=== PATIENT | female | born 1990 | race Caucasian/White ===

== ENCOUNTER 2017-09-30 10:17 | Emergency (ER) | payer OTHER ==
[~2017-09-30] VITALS: Ht 160 cm; Wt 78.5 kg
[2017-09-30] MEDS ORDERED: NS IV 1000 ML 1,000 ML IV ONE (12:36)
--- NOTE | 2017-09-30 12:41 | ED Syncope ---
General Chief Complaint: Dizziness/Syncope Stated Complaint: PASSED OUT TWICE/14 WEEKS Nursing Triage Note: TO ROOM WITH MALE REPORTS SHE IS APX 14 WEEKS PREG. GOT OUT OF BED THIS AM BECAME DIZZY AND PASSED OUT IN SHOWER X2 Source of Information: Patient, Spouse Exam Limitations: No Limitations History of Present Illness Date Seen by Provider: September 30, 2017 Time Seen by Provider: 12:41 Initial Comments 18-year-old female patient presents to the emergency department with complaints of syncopal episodes 2 in the shower earlier today. Patient states she felt really hot and lightheaded. She then began having, vision followed by blacking out. Patient does report having an upper respiratory infection early last week , which improved by Sunday. Does report feeling lightheaded and Sunday when bending over. Patient is approximately 14 weeks . Denies hitting her head, neck pain, back pain, chest pain, shortness of air, or swelling. Patient states she wanted to make sure everything was okay with the baby, so she came to the emergency department. Patient does have a history of syncopal episodes with vasovagal response. Patient is asymptomatic at this time. She is scheduled for follow-up with Dr. Morales on October 10. Location Injury Occurred: Home Timing/Prior Episodes: Remote History Symptoms Prior to Episode: Blurred Vision (tunnel vision right before syncope) , Lightheadedness, Nausea, Other (felt really hot) Precipitating Factors: Other (was in the shower. [place] a little lightheaded while walking to the bathroom.) Allergies and Home Medications Allergies Coded Allergies: Sulfa (Sulfonamide Antibiotics) (Verified Allergy, Unknown, 09/30/17) latex (Verified Allergy, Unknown, 09/30/17) Home Medications Nitrofurantoin Monohyd/M-Cryst 100 Mg Capsule, 1 TAB PO BID Prescribed by: STEPHANIE RUIZ on 09/30/17 7129 Patient Home Medication List Home Medication List Reviewed: Yes Constitutional: see HPI; No chills, No fever, No malaise EENTM: no symptoms reported Respiratory: No cough, No dyspnea on exertion, No phlegm, No short of breath Cardiovascular: see HPI; No chest pain, No edema, No palpitations; syncope Gastrointestinal: No abdominal pain, No constipation, No diarrhea, No loss of appetite, No melena, No nausea (felt nauseated for a few minutes after waking up , but denies current nausea.), No vomiting Genitourinary: No decreased output, No discharge, No dysuria, No frequency, No hematuria, No pain, No other (denies vaginal bleeding) : Yes Musculoskeletal: No back pain, No joint pain, No neck pain Skin: No change in color, No lumps Psychiatric/Neurological: Denies Headache, Denies Numbness, Denies Paresthesia , Denies Seizure, Denies Tingling, Denies Weakness All Other Systems Reviewed Negative Unless Noted: Yes (Negative excepted noted.) Past Bjwwswh-[place]-Arxiue Hx Patient Social History Alcohol Use: Denies Use Recreational Drug Use: No Smoking Status: Never a Smoker Recent Foreign Travel: No Contact w/Someone Who Travel: No Recent Infectious Disease Expo: No Past Medical History Surgeries: Yes (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 H/o vasovagal response) Heart Murmur Neurological: No : Yes Hx : 1 Hx Para: 0 Hx Total # of Abortions (Sp): 0 Reproductive Disorders: No Female Reproductive Disorders: Denies Sexually Transmitted Disease: No HIV/AIDS: No Genitourinary: No Gastrointestinal: No Musculoskeletal: No Cancer: No Psychosocial: No Family Medical History Reviewed and Corrections made No Pertinent Family Hx Physical Exam Vital Signs Vital Signs - First Documented 09/30/17 09/30/17 10:36 15:17 Temp 97.0 Pulse 72 Resp 18 B/P (MAP) 111/71 (84) Pulse Ox 98 O2 Delivery Room Air Capillary Refill : Less Than 3 Seconds General Appearance: No Apparent Distress, WD/WN HEENT: PERRL/EOMI, TMs Normal, Normal ENT Inspection, Pharynx Normal; No Other (No evidence of raccoon eyes, bilateral sign, swelling, ecchymosis, or crepitus. ) Neck: Full Range of Motion, Normal Inspection, Non Tender, Supple; No Other ( No evidence of deformity, swelling, ecchymosis, or step-off of the C-spine.) Cardiovascular: Regular Rate, Rhythm, No Edema, No Gallop, No JVD, No Murmur, Normal Peripheral Pulses Respiratory: Lungs Clear, Normal Breath Sounds, No Accessory Muscle Use, No Respiratory Distress; No Other (No evidence of trauma to the chest wall.) Gastrointestinal: Normal Bowel Sounds, Non Tender, Soft; No Distended; Other ( Uterine fundus palpable and consistent with a 14 week gestation. No evidence of trauma to the abdominal wall.) Back: Normal Inspection, No CVA Tenderness, No Vertebral Tenderness Extremities: Normal Capillary Refill, Normal Inspection, Non Tender, No Calf Tenderness, No Pedal Edema, Pelvis Stable Neurologic/Psychiatric: Alert, Oriented x3, No Motor/Sensory Deficits, Normal Mood/Affect, station baggage agent II-XII Norm as Tested Cranial Nerves: Normal Hearing, Normal Speech, PERRL Coordination/Gait: Normal Finger to Nose, Normal Gait, Negative Romberg's Sign Motor/Sensory: No Motor Deficit, No Sensory Deficit, No Pronator Drift Skin: Normal Color, Warm/Dry; No Ecchymosis Progress/Results/Core Measures Results/Orders Lab Results Laboratory Tests Test 09/30/17 12:53 09/30/17 13:13 Range/Units Urine Color YELLOW Urine Clarity CLEAR Urine pH 7 5-9 Urine Specific Duck 1.010 L 1.016-1.022 Urine Protein 1+ H NEGATIVE Urine Glucose (UA) NEGATIVE NEGATIVE Urine Ketones 3+ H NEGATIVE Urine Nitrite POSITIVE H NEGATIVE Urine Bilirubin NEGATIVE NEGATIVE Urine Urobilinogen NORMAL NORMAL MG/DL Urine Leukocyte Esterase NEGATIVE NEGATIVE Urine RBC (Auto) NEGATIVE NEGATIVE Urine RBC RARE /HPF Urine WBC RARE /HPF Urine Squamous Epithelial Cells 0-2 /HPF Urine Crystals NONE /LPF Urine Bacteria FEW H /HPF Urine Casts NONE /LPF Urine Mucus NEGATIVE /LPF Urine Culture Indicated YES White Blood Count 10.7 4.3-11.0 10^3/uL Red Blood Count 4.77 4.35-5.85 10^6/uL Hemoglobin 14.1 11.5-16.0 G/DL Hematocrit 40 35-52 % Mean Corpuscular Volume 85 80-99 FL Mean Corpuscular Hemoglobin 30 25-34 PG Mean Corpuscular Hemoglobin Concent 35 32-36 G/DL Red Cell Distribution Width 13.3 10.0-14.5 % Platelet Count 294 130-400 10^3/uL Mean Platelet Volume 9.3 7.4-10.4 FL Neutrophils (%) (Auto) 86 H 42-75 % Lymphocytes (%) (Auto) 10 L 12-44 % Monocytes (%) (Auto) 4 0-12 % Eosinophils (%) (Auto) 0 0-10 % Basophils (%) (Auto) 0 0-10 % Neutrophils # (Auto) 9.2 H 1.8-7.8 X 10^3 Lymphocytes # (Auto) 1.0 1.0-4.0 X 10^3 Monocytes # (Auto) 0.5 0.0-1.0 X 10^3 Eosinophils # (Auto) 0.0 0.0-0.3 10^3/uL Basophils # (Auto) 0.0 0.0-0.1 10^3/uL Sodium Level 137 135-145 MMOL/L Potassium Level 4.0 3.6-5.0 MMOL/L Chloride Level 106 98-107 MMOL/L Carbon Dioxide Level 19 L 21-32 MMOL/L Anion Gap 12 5-14 MMOL/L Blood Urea Nitrogen 7 7-18 MG/DL Creatinine 0.66 0.60-1.30 MG/DL Estimat Glomerular Filtration Rate > 60 BUN/Creatinine Ratio 11 Glucose Level 76 70-105 MG/DL Calcium Level 9.8 8.5-10.1 MG/DL Total Bilirubin 0.8 0.1-1.0 MG/DL Aspartate Amino Transf (AST/SGOT) 17 5-34 U/L Alanine Aminotransferase (ALT/SGPT) 19 0-55 U/L Alkaline Phosphatase 56 40-136 U/L Troponin I < 0.30 <0.30 NG/ML Total Protein 7.4 6.4-8.2 GM/DL Albumin 4.8 H 3.2-4.5 GM/DL TSH Mcduffie Testing 0.82 0.35-4.94 UIU/ML Micro Results Microbiology 09/30/17 Urine Culture - Final, Complete My Orders Orders - STEPHANIE RUIZ Cbc With Automated Diff (09/30/17 12:36) Comprehensive Metabolic Panel (09/30/17 12:36) Thyroid Analyzer (09/30/17 12:36) Troponin I (09/30/17 12:36) Ua Culture If Indicated (09/30/17 12:36) Saline Lock/Iv-Start (09/30/17 12:36) Ekg Tracing (09/30/17 12:36) Heart Tones (09/30/17 12:36) Monitor-Rhythm Ecg Trace Only (09/30/17 12:36) Ns Iv 1000 Ml (Sodium Chloride 0.9%) (09/30/17 12:36) Urine Culture (09/30/17 12:53) Medications Given in ED Vital Signs/I&O 09/30/17 09/30/17 10:36 15:17 Temp 97.0 Pulse 72 60 Resp 18 18 B/P (MAP) 111/71 (84) 112/59 Pulse Ox 98 98 O2 Delivery Room Air Blood Pressure Mean: 38 Departure Communication (Admissions) Patient seen and evaluated. ECG and labs obtained. Patient and both refusing chest x-ray. I discussed risks, benefits, possible complications associated with not to performing the chest x-ray. All questions were answered. Both continue to refuse chest x-ray. Patient case discussed with Dr. Morales. Dr. Morales recommends following up in her office on Sunday for recheck. 1405 T's 156. all laboratory findings and diagnostic study findings discussed with the patient. Patient reports feeling much better after IV fluids. We will plan for discharge to home with follow-up as an outpatient with Dr. John Morales for recheck Sunday. Patient case discussed with Dr. Barger , he agrees with the plan of care. Impression Primary Impression: Urinary tract infection Qualified Codes: N30.00 - Acute cystitis without hematuria Additional Impressions: with 14 completed weeks gestation Volume depletion Disposition: 01 HOME, SELF-CARE Condition: Improved Departure-Patient Inst. Decision time for Depature: 14:12 Referrals: MELO KELLY MD (PCP) Primary Care Physician JOHN MORALES DO (Family) Primary Care Physician Patient Instructions: Dehydration, Adult (DC), Urinary Tract Infection, Adult ( DC), Vasovagal Response (DC) Add. Discharge Instructions: All discharge instructions reviewed with patient and/or family. Voiced understanding. Medications as directed. Continue usual home medications. Drink plenty of fluids. Alternate water and Gatorade/Powerade/vitamin water. No intercourse or strenuous activities until released by Dr. Morales. Follow-up with Dr. Morales for recheck on Sunday. Call Sunday morning for an appointment time. Return to the emergency department for worsened symptoms, changes in behavior, weakness, dizziness, vomiting, vomiting blood, rectal bleeding, black stools, abdominal pain, vaginal bleeding with greater than 2 pads per for greater than 2 hours, one-sided weakness, slurred speech, or any other concerns. Scripts Nitrofurantoin Monohyd/M-Cryst (Macrobid 100 mg Capsule) 100 Mg Capsule 1 TAB PO BID, #14 CAP 0 Refills Prov: STEPHANIE RUIZ 09/30/17 Work/School Note: Work Release Form Date Seen in the Emergency Department: September 30, 2017 Return to Work: October 03, 2017 Restrictions: No strenuous activity until released by STEPHANIE Scott September 30, 2017 12:41
[2017-09-30 13:18] LABS: BASOPHILS % (AUTO) 0 % (0-10); EOSINOPHILS % (AUTO) 0 % (0-10); HEMATOCRIT 40 % (35-52); HEMOGLOBIN 14.1 G/DL (11.5-16.0); LYMPHOCYTES % (AUTO) 10 % (12-44); MEAN CORPUSCULAR HEMOGLOBIN 30 PG (25-34); MEAN CORPUSCULAR HGB CONC 35 G/DL (32-36); MEAN CORPUSCULAR VOLUME 85 FL (80-99); MEAN PLATELET VOLUME 9.3 FL (7.4-10.4); MONOCYTES # (AUTO) 0.5 X 10^3 (0.0-1.0); MONOCYTES % (AUTO) 4 % (0-12); NEUTROPHILS # (AUTO) 9.2 X 10^3 (1.8-7.8); NEUTROPHILS % (AUTO) 86 % (42-75); PLATELET COUNT 294 10^3/uL (130-400); RED BLOOD COUNT 4.77 10^6/uL (4.35-5.85); RED CELL DISTRIBUTION WIDTH 13.3 % (10.0-14.5); WHITE BLOOD COUNT 10.7 10^3/uL (4.3-11.0)
[2017-09-30 13:23] LABS: BILIRUBIN,URINE NEGATIVE (NEGATIVE); CLARITY,URINE CLEAR; COLOR,URINE YELLOW; GLUCOSE, URINE (UA) NEGATIVE (NEGATIVE); KETONES,URINE 3+ (NEGATIVE); LEUKOCYTE ESTERASE ,URINE NEGATIVE (NEGATIVE); NITRITE,URINE POSITIVE (NEGATIVE); PH,URINE 7 (5-9); PROTEIN,URINE 1+ (NEGATIVE); UROBILINOGEN,URINE NORMAL (NORMAL)
[2017-09-30 13:39] LABS: ALANINE AMINOTRANSFERASE 19 U/L (0-55); ALBUMIN 4.8 GM/DL (3.2-4.5); ALKALINE PHOSPHATASE 56 U/L (40-136); BILIRUBIN,TOTAL 0.8 MG/DL (0.1-1.0); BUN/CREATININE RATIO 11; CALCIUM 9.8 MG/DL (8.5-10.1); CARBON DIOXIDE 19 MMOL/L (21-32); CHLORIDE 106 MMOL/L (98-107); CREATININE SERUM 0.66 MG/DL (0.60-1.30); GFR ESTIMATED > 60; GLUCOSE 76 MG/DL (70-105); SODIUM 137 MMOL/L (135-145); TOTAL PROTEIN 7.4 GM/DL (6.4-8.2)
[2017-09-30 13:59] LABS: TSH (THYROID ANALYZER) 0.82 UIU/ML (0.35-4.94)
[2017-09-30 14:02] LABS: BACTERIA,URINE FEW /HPF; RBC,URINE RARE /HPF; SQUAMOUS EPITHELIAL CELL,UR 0-2 /HPF; WBC,URINE RARE /HPF
[2017-09-30] MEDS ORDERED: NITR-65 PO ×2 (14:17→14:54)
[2017-09-30 15:17] VITALS: BP 112/59
--- OUTSIDE RECORDS SUMMARY | 2017-10-01 16:13 | XMS REPORT | Continuity of Care Document ---
Author Author [facility] Organization [facility] Address Unknown Phone Unavailable Allergies There is no data. Medications There is no data. Problems Date Dx Coded Attending Type Code Diagnosis Diagnosed By 09/09/2014 OSCAR GARDUNO P 462 ACUTE PHARYNGITIS OSCAR GARDUNO Procedures There is no data. Results Test Result Range GLUCOSE, SERUM - 08/15/17 08:15 GLUCOSE 77 mg/dL 65-99 Encounters ACCT No. Visit Date/Time Discharge Status Pt. Type Provider Facility Loc./Unit Complaint [id number] 06/20/2012 15:00:00 06/20/2012 23:59:59 [facility] Outpatient Nivia Arellano HOME OFFICE CLAIMS EXAMINER [facility] [id number] 06/11/2012 13:55:00 06/11/2012 23:59:00 DIS Outpatient Margaret VOSS, Shashank Ornelas [facility] CARD.[facility] [id number] 09/09/2014 08:20:00 09/09/2014 23:59:59 CLS Outpatient OSCAR GARDUNO [id number] 08/15/2017 09:00:00 08/15/2017 23:59:59 CLS Outpatient PADDY CROOKS [facility], [facility] [id number] 08/15/2017 08:45:00 Document Registration
== END 2017-09-30 15:16 | disposition home or self-care (01) ==
LOC: ER 10:19
DX: O23.42 Unspecified infection of urinary tract in pregnancy, second trimester (principal); O99.282 Endocrine, nutritional and metabolic diseases complicating pregnancy, second trimester; E86.9 Volume depletion, unspecified; Z88.2 Allergy status to sulfonamides; Z3A.14 14 weeks gestation of pregnancy
CPT/HCPCS: 36415; 80053; 81000; 84443; 84484; 85025; 87088; 93005; 96360; 96361

== ENCOUNTER → 2017-11-26 | Outpatient (CLI) | payer OTHER ==
[~2017-11-26] MED LIST: NITR-65 PO
--- NOTE | 2017-11-26 13:11 | Diagnostic Imaging Report ---
INDICATION: survey. TECHNIQUE: Multiple Real-time grayscale images were obtained over the gravid uterus. COMPARISON: None. FINDINGS: There is a single live fetus in a cephalic presentation. The heart rate was recorded at 144 BPM. The placenta is posterior. The amniotic fluid volume is normal. The survey demonstrates the kidneys, bladder, and stomach to be unremarkable. The brain is unremarkable. There is a four-chamber heart. There is a three-vessel cord with normal insertion. The spine is unremarkable although the upper spine was not well visualized on today's study. The cervical length is 4.4 cm. MEASUREMENTS: Biometrical measurements are as follows: Biparietal 5.29 cm, age 22 weeks 1 days. Head circumference 19.79 cm, age 22 weeks 0 days. Abdominal circumference 15.72 cm, age 21 weeks 0 days. Femur length 3.47 cm, age 21 weeks 0 days. Sonographic estimate age: 21 weeks 4 days. Sonographic estimated date of delivery: 04/04/18. Estimated Weight: 395 gm (+/- 58 gm). LMP percentile: 9%. heart rate: 144 beats per minute. number: 1 of 1. IMPRESSION: Single live IUP at 21 weeks 4 days gestational age. The estimated date of confinement sonographically is 04/04/2018. The survey is unremarkable although the upper spine was not well seen on today's study and a followup could be obtained. Dictated by: Dictated on workstation # [id number]
== END ==
LOC: RAD 10:07
PROVIDERS: ATTEND Obstetrics & Gynecology
DX: Z36.89 Encounter for other specified antenatal screening (principal); Z3A.21 21 weeks gestation of pregnancy
CPT/HCPCS: 76805

== ENCOUNTER 2018-03-28 08:29 | Inpatient (IN) | payer OTHER ==
[2018-03-28] VITALS (72 sets, daily range): BP systolic 76–153; BP diastolic 43–79
[~2018-03-28] VITALS: Ht 160 cm; Wt 96.3 kg
[2018-03-28] MEDS ORDERED: OXYTOCIN/NORMAL SALINE 500 ML IV SCH ×2 (08:58→18:40)
[2018-03-28] MEDS ORDERED: MINERAL OIL CONCENTRATE 99.9% 15 ML UDC TOP PRN (09:00)
--- OUTSIDE RECORDS SUMMARY | 2018-03-28 09:05 | XMS REPORT ---
Author Author PADDY CROOKS [facility] Address [address] [place] [address] Phone Unavailable Care Team Providers Care Urology Physician Name Role Phone PADDY CROOKS Unavailable Unavailable PROBLEMS Unknown Problems ALLERGIES No Information ENCOUNTERS Encounter Location Date Diagnosis [facility] [id number] [address] Aug, [facility] [address] [address] Aug, [facility] [id number], [place] [address] Aug, Encounter for biometric screening Z01.89 IMMUNIZATIONS No Known Immunizations SOCIAL HISTORY Never Assessed REASON FOR VISIT Biometric Screening-Health Questionnaire Obtained-Height/Weight/Blood Pressure/ Waist---[facility] PLAN OF CARE VITAL SIGNS Height 64.5 in 2017-08-15 Weight 170 lbs 2017-08-15 BMI 28.73 kg/m2 2017-08-15 Blood pressure systolic 98 mmHg 2017-08-15 Blood pressure diastolic 60 mmHg 2017-08-15 MEDICATIONS Unknown Medications RESULTS No Results PROCEDURES No Known procedures INSTRUCTIONS MEDICATIONS ADMINISTERED No Known Medications
--- OUTSIDE RECORDS SUMMARY | 2018-03-28 09:05 | XMS REPORT ---
Author Author PADDY CROOKS [facility] Address [address] [place] [address] Phone Unavailable Care Team Providers Care Undertaker Helper Name Role Phone PADDY CROOKS Unavailable Unavailable PROBLEMS Unknown Problems ALLERGIES No Information ENCOUNTERS Encounter Location Date Diagnosis [facility] [id number], [place] [address] Aug, [facility] [id number] [address] Aug, [facility] [id number] [address] Aug, Encounter for biometric screening Z01.89 IMMUNIZATIONS No Known Immunizations SOCIAL HISTORY Never Assessed REASON FOR VISIT Requests return call PLAN OF CARE VITAL SIGNS MEDICATIONS Unknown Medications RESULTS No Results PROCEDURES No Known procedures INSTRUCTIONS MEDICATIONS ADMINISTERED No Known Medications
--- OUTSIDE RECORDS SUMMARY | 2018-03-28 09:05 | XMS REPORT ---
Author Author PADDY CROOKS [facility] Address [address] [place] [address] Phone Unavailable Care Team Providers Care Chief Building Inspector Name Role Phone PADDY CROOKS Unavailable Unavailable PROBLEMS Unknown Problems ALLERGIES No Information ENCOUNTERS Encounter Location Date Diagnosis [facility] [id number] [address] Aug, [facility] [id number] [address] Aug, [facility] [id number] [address] Aug, Encounter for biometric screening Z01.89 IMMUNIZATIONS No Known Immunizations SOCIAL HISTORY Never Assessed REASON FOR VISIT Lab Only PLAN OF CARE VITAL SIGNS MEDICATIONS Unknown Medications RESULTS No Results PROCEDURES No Known procedures INSTRUCTIONS MEDICATIONS ADMINISTERED No Known Medications
--- OUTSIDE RECORDS SUMMARY | 2018-03-28 09:05 | XMS REPORT | Continuity of Care Document ---
Author Author [facility] Organization [facility] Address Unknown Phone Unavailable Allergies Active Description Code Type Severity Reaction Onset Reported/Identified Relationship to Patient Clinical Status Yes latex [id number] Drug Allergy Unknown N/A 09/30/2017 Yes Sulfa (Sulfonamide Antibiotics) [id number] Drug Allergy Unknown N/A 2017 Medications There is no data. Problems Date Dx Coded Attending Type Code Diagnosis Diagnosed By 09/09/2014 OSCAR GARDUNO P 462 ACUTE PHARYNGITIS OSCAR GARDUNO 09/30/2017 STEPHANIE NORRIS Ot E86.9 VOLUME DEPLETION, UNSPECIFIED 09/30/2017 STEPHANIE NORRIS Ot O23.42 UNSP INFCT OF URINARY TRACT IN 09/30/2017 STEPHANIE NORRIS Ot O99.282 ENDO, NUTRITIONAL AND METAB DISEASES COM 09/30/2017 STEPHANIE NORRIS Ot O99.89 OTH DISEASES AND CONDITIONS COMPL PREG/C 09/30/2017 STEPHANIE NORRIS Ot Z3A.14 14 WEEKS GESTATION OF 09/30/2017 STEPHANIE NORRIS Ot Z88.2 ALLERGY STATUS TO SULFONAMIDES STATUS 11/27/2017 JOHN MORALES DO C Ot Z36.89 ENCOUNTER FOR OTHER SPECIFIED 11/27/2017 DENICE MORALES DOA C Ot Z3A.33 33 WEEKS GESTATION OF 11/27/2017 CARMEN HAJI JOHN C Ot Z36.89 ENCOUNTER FOR OTHER SPECIFIED 11/27/2017 MORALES DO JOHN C Ot Z3A.21 21 WEEKS GESTATION OF 01/11/2018 CARMEN HAJI JOHN C Ot Z36.89 ENCOUNTER FOR OTHER SPECIFIED 01/11/2018 MORALES DO JOHN C Ot Z3A.28 28 WEEKS GESTATION OF Procedures There is no data. Results Test Result Range GLUCOSE, SERUM - 08/15/17 08:15 GLUCOSE 77 mg/dL 65-99 Complete urinalysis with reflex to culture - 09/30/17 12:53 Urine color determination YELLOW NRG Urine clarity determination CLEAR NRG Urine pH measurement by test strip 7 5-9 Specific gravity of urine by test strip 1.010 1.016- 1.022 Urine protein assay by test strip, semi-quantitative 1+ NEGATIVE Urine glucose detection by automated test strip NEGATIVE NEGATIVE Erythrocytes detection in urine sediment by light microscopy NEGATIVE NEGATIVE Urine ketones detection by automated test strip 3+ NEGATIVE Urine nitrite detection by test strip POSITIVE NEGATIVE Urine total bilirubin detection by test strip NEGATIVE NEGATIVE Urine urobilinogen measurement by automated test strip (mass/volume) NORMAL NORMAL Urine leukocyte esterase detection by dipstick NEGATIVE NEGATIVE Automated urine sediment erythrocyte count by microscopy (number/high power field) RARE NRG Automated urine sediment leukocyte count by microscopy (number/high power field ) RARE NRG Bacteria detection in urine sediment by light microscopy FEW NRG Squamous epithelial cells detection in urine sediment by light microscopy 0-2 NRG Crystals detection in urine sediment by light microscopy NONE NRG Casts detection in urine sediment by light microscopy NONE NRG Mucus detection in urine sediment by light microscopy NEGATIVE NRG Complete urinalysis with reflex to culture YES NRG Bacterial urine culture - 09/30/17 12:53 Complete blood count (CBC) with automated white blood cell (WBC) differential - 09/30/17 13:13 Blood leukocytes automated count (number/volume) 10.7 10*3/uL 4.3-11.0 Blood erythrocytes automated count (number/volume) 4.77 10*6/uL 4.35-5.85 Venous blood hemoglobin measurement (mass/volume) 14.1 g/dL 11.5-16.0 Blood hematocrit (volume fraction) 40 % 35-52 Automated erythrocyte mean corpuscular volume 85 [foz_us] 80-99 Automated erythrocyte mean corpuscular hemoglobin (mass per erythrocyte) 30 pg 25-34 Automated erythrocyte mean corpuscular hemoglobin concentration measurement ( mass/volume) 35 g/dL 32-36 Automated erythrocyte distribution width ratio 13.3 % 10.0-14.5 Automated blood platelet count (count/volume) 294 10*3/uL 130-400 Automated blood platelet mean volume measurement 9.3 [foz_us] 7.4-10.4 Automated blood neutrophils/100 leukocytes 86 % 42-75 Automated blood lymphocytes/100 leukocytes 10 % 12-44 Blood monocytes/100 leukocytes 4 % 0-12 Automated blood eosinophils/100 leukocytes 0 % 0-10 Automated blood basophils/100 leukocytes 0 % 0-10 Blood neutrophils automated count (number/volume) 9.2 10*3 1.8-7.8 Blood lymphocytes automated count (number/volume) 1.0 10*3 1.0-4.0 Blood monocytes automated count (number/volume) 0.5 10*3 0.0-1.0 Automated eosinophil count 0.0 10*3/uL 0.0-0.3 Automated blood basophil count (count/volume) 0.0 10*3/uL 0.0-0.1 Comprehensive metabolic panel - 09/30/17 13:13 Serum or plasma sodium measurement (moles/volume) 137 mmol/L 135-145 Serum or plasma potassium measurement (moles/volume) 4.0 mmol/L 3.6-5.0 Serum or plasma chloride measurement (moles/volume) 106 mmol/L 98-107 Carbon dioxide 19 mmol/L 21-32 Serum or plasma anion gap determination (moles/volume) 12 mmol/L 5-14 Serum or plasma urea nitrogen measurement (mass/volume) 7 mg/dL 7-18 Serum or plasma creatinine measurement (mass/volume) 0.66 mg/dL 0.60-1.30 Serum or plasma urea nitrogen/creatinine mass ratio 11 NRG Serum or plasma creatinine measurement with calculation of estimated glomerular filtration rate > NRG Serum or plasma glucose measurement (mass/volume) 76 mg/dL 70-105 Serum or plasma calcium measurement (mass/volume) 9.8 mg/dL 8.5-10.1 Serum or plasma total bilirubin measurement (mass/volume) 0.8 mg/dL 0.1-1.0 Serum or plasma alkaline phosphatase measurement (enzymatic activity/volume) 56 U/L 40-136 Serum or plasma aspartate aminotransferase measurement (enzymatic activity/ volume) 17 U/L 5-34 Serum or plasma alanine aminotransferase measurement (enzymatic activity/volume ) 19 U/L 0-55 Serum or plasma protein measurement (mass/volume) 7.4 g/dL 6.4-8.2 Serum or plasma albumin measurement (mass/volume) 4.8 g/dL 3.2-4.5 Serum or plasma troponin i.cardiac measurement (mass/volume) - 09/30/17 13:13 Serum or plasma troponin i.cardiac measurement (mass/volume) < ng/ mL <0.30 Serum or plasma thyrotropin measurement by detection limit <=0.05 miu/l (units/ volume) - 09/30/17 13:13 Serum or plasma thyrotropin measurement by detection limit <=0.05 miu/l (units/ volume) 0.82 u[iU]/mL 0.35-4.94 Encounters ACCT No. Visit Date/Time Discharge Status Pt. Type Provider Facility Loc./Unit Complaint [id number] 06/20/2012 15:00:00 06/20/2012 23:59:59 CLS Outpatient Nivia Arellano APRN [facility] [id number] 06/11/2012 13:55:00 06/11/2012 23:59:00 DIS Outpatient Margaret VOSS, Shashank Ornelas [facility] CARD.[facility] [id number] 09/09/2014 08:20:00 09/09/2014 23:59:59 CLS Outpatient OSCAR GARDUNO [id number] 01/10/2018 09:47:00 01/10/2018 23:59:59 CLS Outpatient JOHN MORALES DO [facility] RAD EVALUATE ANATOMY NO SEEN ON PRIOR SONO, 27 WEEKS [id number] 11/26/2017 10:07:00 11/26/2017 23:59:59 CLS Outpatient JOHN MORALES DO [facility] RAD 19 WEEKS GESTATION OF [id number] 09/30/2017 10:19:00 09/30/2017 15:16:00 DIS Emergency STEPHANIE NORRIS [facility] ER PASSED OUT TWICE/14 WEEKS [id number] 08/15/2017 09:00:00 08/15/2017 23:59:59 CLS Outpatient NWAGPADDY BOTELLO [facility] [id number] 08/15/2017 08:45:00 Document Registration
[2018-03-28] MEDS: D5 LR IV SOLUTION 1,000 ML IV SCH ×2 (09:40→14:25)
[2018-03-28 09:51] LABS: BASOPHILS % (AUTO) 0 % (0-10); EOSINOPHILS % (AUTO) 0 % (0-10); HEMATOCRIT 37 % (35-52); HEMOGLOBIN 12.5 G/DL (11.5-16.0); LYMPHOCYTES # (AUTO) 1.3 X 10^3 (1.0-4.0); LYMPHOCYTES % (AUTO) 11 % (12-44); MEAN CORPUSCULAR HEMOGLOBIN 29 PG (25-34); MEAN CORPUSCULAR HGB CONC 34 G/DL (32-36); MEAN CORPUSCULAR VOLUME 86 FL (80-99); MEAN PLATELET VOLUME 10.2 FL (7.4-10.4); MONOCYTES # (AUTO) 0.8 X 10^3 (0.0-1.0); MONOCYTES % (AUTO) 6 % (0-12); NEUTROPHILS # (AUTO) 9.6 X 10^3 (1.8-7.8); NEUTROPHILS % (AUTO) 82 % (42-75); PLATELET COUNT 264 10^3/uL (130-400); RED BLOOD COUNT 4.31 10^6/uL (4.35-5.85); RED CELL DISTRIBUTION WIDTH 13.1 % (10.0-14.5); WHITE BLOOD COUNT 11.8 10^3/uL (4.3-11.0)
[2018-03-28] MEDS ORDERED: SUFENTA 0.6MCG/ML BUPIVA 0.125 100 ML ONE (10:35)
[2018-03-28] MEDS ORDERED: LIDOCAINE PF 2% 5 ML (XYLOCAINE) VIAL ONE (10:43)
[2018-03-28] MEDS ORDERED: BUPIVACAINE 0.25% 30 ML (SENSORCAINE) VIAL ONE (10:43)
[2018-03-28] MEDS ORDERED: fentaNYL INJECTION 100 MCG/2 ML AMP ONE (10:44)
[2018-03-28] MEDS: EPIDURAL (SUFENTA 0.6MCG/ML BUPIVA 0.125%) 100 ML BAG EPI PRN ×2 (11:25→20:05)
[2018-03-28] MEDS ORDERED: LACTATED RINGERS 1,000 ML IV SCH (11:28)
[2018-03-28] MEDS ORDERED: NALOXONE 0.4 MG/ML 1 ML (NARCAN) VIAL IV PRN (11:30)
[2018-03-28] MEDS ORDERED: diphenhydrAMINE 50 MG/ML INJ (BENADRYL) IV PRN (11:30)
[2018-03-28] MEDS ORDERED: PREN-53 PO (13:59)
[2018-03-28] MEDS: ONDANSETRON 4 MG/2 ML (SDV) Z0FRAN IV PRN ×2 (17:50→23:20)
[2018-03-28] MEDS ORDERED: LIDOCAINE/EPI 2% 1:200,00 (XYLOCAINE) 10 ML VIAL ONE (18:18)
[2018-03-28] MEDS ORDERED: MEASLES,MUMPS,RUBELLA 1 EA INJ SQ ONE (18:45)
[2018-03-28] MEDS ORDERED: HYDROcodone/APAP 5 MG/325 MG (LORTAB) TAB PO PRN (18:45)
[2018-03-28] MEDS ORDERED: WITCH HAZEL(TUCKS) 40 EA JAR TOP PRN (18:45)
[2018-03-28] MEDS ORDERED: DIBUCAINE (NUPERCAINAL) 1% OINT 30 GM TOP PRN (18:45)
[2018-03-28] MEDS ORDERED: TETANUS,DIPTH,PERTUSS P/F (BOOSTRIX) 0.5 ML VIAL IM ONE (18:45)
[2018-03-28] MEDS ORDERED: BENZOCAINE/MENTHOL (DERMOPLAST) 56 ML CAN TP PRN (18:45)
--- NOTE | 2018-03-28 18:49 | History & Physical-OB ---
OB - Chief Complaint & HPI Date/Time Date of Admission: Date of Admission: Mar 28, 2018 at 08:55 Date seen by a Provider: Mar 28, 2018 Time Seen by a Provider: 09:30 Chief Complaint/History OB-Reason for Admission/Chief: Rupture of Membranes Hx : 1 Hx Para: 0 Expected Date of Delivery: Apr 01, 2018 Gestational Age in Weeks: 39 Gestational Age in Days: 3 Admission Nurse Assessment Rev: Yes History of Labs A-/- (rhogam received; flu vac and TDaP received) Hep B SAG- HIV - GBS - VDRL NR Rub I Other Presented for SROM clear fluid. Not actively maddie on admission Allergies and Home Medications Allergies Coded Allergies: Sulfa (Sulfonamide Antibiotics) (Verified Allergy, Unknown, 09/30/17) latex (Verified Allergy, Unknown, 09/30/17) Home Medications Aog718/Iron Fumarate/FA/Dss 1 Each Tablet, 1 EACH PO DAILY, (Reported) Patient Home Medication List Home Medication List Reviewed: Yes OB - History Hx of Present Care: Yes Ultrasounds: Normal mid trimester US Medical Complications: None Information Induced Hypertension: No Maternal Gestational Diabetes: No Hemorrhage: No Obstetrical History Hx : 1 Hx Para: 0 Delivery History Adverse Rxn to Tranfusion: No Patient Past Medical History NC Social History/Family History HIV/AIDS: No Recent Infectious Disease Expo: No Sexually Transmitted Disease: No Alcohol Use: Denies Use Recreational Drug Use: No Immunizations Hepatitis A: Yes Hepatitis B: Yes Tetanus Booster (TDap): Less than 5yrs Date of Influenza Vaccine: Feb 25, 2018 Rubella: immune RPR/VDRL: Negative GBS Status: Negative HBsAG: Negative OB - Admission Exam Physical Exam Vitals: Vital Signs 03/28/18 03/28/18 03/28/18 12:35 17:00 17:45 Temp 97.6 Pulse 84 Resp 18 B/P (MAP) 114/63 (80) Pulse Ox 99 O2 Delivery Room Air Lungs: Clear Abdomen: Gravid Extremities: Normal Reflexes: Normal Cervical Dilatation: 2cm Effacement: 75% Station: -3 Membranes: Ruptured Amniotic Fluid: Clear Heart Rate: 140's Accelerations: Accelerations Present Decelerations: No Decelerations Short Term Variability: Present Business Objects Consultant Variability: Average (6-25) Contractions on Admission: 6-10 Minutes Apart Labs Laboratory Tests Test 03/28/18 09:40 Range/Units White Blood Count 11.8 H 4.3-11.0 10^3/uL Red Blood Count 4.31 L 4.35-5.85 10^6/uL Hemoglobin 12.5 11.5-16.0 G/DL Hematocrit 37 35-52 % Mean Corpuscular Volume 86 80-99 FL Mean Corpuscular Hemoglobin 29 25-34 PG Mean Corpuscular Hemoglobin Concent 34 32-36 G/DL Red Cell Distribution Width 13.1 10.0-14.5 % Platelet Count 264 130-400 10^3/uL Mean Platelet Volume 10.2 7.4-10.4 FL Neutrophils (%) (Auto) 82 H 42-75 % Lymphocytes (%) (Auto) 11 L 12-44 % Monocytes (%) (Auto) 6 0-12 % Eosinophils (%) (Auto) 0 0-10 % Basophils (%) (Auto) 0 0-10 % Neutrophils # (Auto) 9.6 H 1.8-7.8 X 10^3 Lymphocytes # (Auto) 1.3 1.0-4.0 X 10^3 Monocytes # (Auto) 0.8 0.0-1.0 X 10^3 Eosinophils # (Auto) 0.0 0.0-0.3 10^3/uL Basophils # (Auto) 0.0 0.0-0.1 10^3/uL OB - Assessment/Plan/Diagnosis Assessment Assessment: active labor, rupture of membranes Admission Dx Admit for active labor Anticipate Augmentation as needed Admission Status: Inpatient Order (span 2 midnights) Reason for Inpatient Admission: labor Plan Plan: Expectant Management JOHN MORALES DO Mar 28, 2018 18:49
--- NOTE | 2018-03-28 21:27 | OB Labor & Delivery Record ---
Vag Delivery Note Vag Delivery Note Date of Delivery: 03/28/18 Preoperative Diagnosis: Tracey Jara is a 27 /Para 1 / 0,Gestational Age 39 3/7 weeks with spontaneous rupture of membranes Postoperative Diagnosis: Same, right buttock lesion, polypoid Surgeon: JOHN MORALES Wire Splicer: Gagan South, MS III Anesthesia: epidural Delivery Type: vacuum assisted vaginal delivery, with excision of lesion on right buttock Findings: Viable infant, apgars 8/8, weight pending Lacerations: 2nd degree Intact placenta with 3 vessel cord. No body cord or shoulder dystocia. Nuchal cord delivered through lesion right buttock. This was polypoid with a base of 4-5 mm and about 1 cm in length Estimated Blood Loss: 150ml Complications: None Condition: Stable Description of Procedure: The patient is a 27 /Para 1 / 0,Gestational Age 39 3/7 weeks with spontaneous rupture of membranes. She was 2-3 cm dilated on exam and not in active labor (was only maddie minimally). She was admitted and informed consent was obtained.. epidural was placed and then Pitocin augmentation was started. She reached 6-7 cm and then began having deep variable decelerations. There were some that appeared late. Fluid bolus, position change and cessation of Pitocin was initiated and this did improve the status. However, cervical dilation slowed so Pitocin was restarted. She progressed to complete dilatation and began to push. After 1 1/2 + hours, she was repositioned to knee chest position and pushed in that position for 30-45 minutes with improvement in station and position rotation to OA. She was repositioned to the dorsolithotomy position and continued pushing. The decelerations return and were very deep. However, she was making progress. She did begin to tire, however. So with baby at + 2 states (after 3 hours of pushing) the vacuum was placed in standard fashion. She then pushed for 3 more contractions with 4 pushes each time and no pop offs. The vacuum was removed and she was allowed to deliver. The 's head was delivered atraumatically in the OA position. The shoulders and remainder of the infant's body were then delivered without difficulty. Upon delivery, the head was held below the level of the perineum and the mouth and nares were bulb suctioned. with delivery of the head, there was green meconium noted. This had not previously been noted. The cord was doubly clamped and cut and the was handed off to the pediatric staff. An intact placenta with 3-vessel cord delivered via Wilma and there was found to be minimal bleeding.~ Vigorous fundal massage was performed and the fundus was found to be firm. IV oxytocin was given. Examination of the vagina and perineum revealed a 2nd laceration repaired in the usual fashion with 3-0 vicryl suture. in addition, I injection the right buttock where the polypoid lesion was noted and then excised this at the base. I then placed 2 figure of 8 stitches to control bleeding. Following the repair, sponge, instrument and needle counts were correct. Mom and baby were both in stable condition in the labor suite. Baby was then taken to the nursery due to increased work of breathing Vitals - Labs Vital Signs - I&O Vital Signs Date Time Temp Pulse Resp B/P (MAP) Pulse Ox O2 Delivery O2 Flow Rate FiO2 03/28/18 19:00 102 18 133/62 (85) Room Air 03/28/18 18:45 89 18 143/67 (92) Room Air 03/28/18 18:30 81 18 148/79 (102) Room Air 03/28/18 18:15 74 18 128/65 (86) Room Air 03/28/18 18:00 75 18 116/59 (78) Room Air 03/28/18 17:45 84 18 114/63 (80) Room Air 03/28/18 17:30 90 18 114/63 (80) Room Air 03/28/18 17:15 81 18 108/54 (72) Room Air 03/28/18 17:00 97.6 78 18 123/62 (82) Room Air 03/28/18 16:45 68 18 131/62 (85) Room Air 03/28/18 16:30 68 18 118/59 (78) Room Air 03/28/18 16:15 64 18 142/64 (90) Room Air 03/28/18 16:00 66 18 123/60 (81) Room Air 03/28/18 15:45 70 18 138/61 (86) Room Air 03/28/18 15:30 69 18 119/59 (79) Room Air 03/28/18 15:15 72 18 120/57 (78) Room Air 03/28/18 15:00 70 18 119/56 (77) Room Air 03/28/18 14:45 68 18 117/55 (75) Room Air 03/28/18 14:30 66 18 109/62 (78) Room Air 03/28/18 14:15 65 18 109/55 (73) Room Air 03/28/18 14:00 70 18 115/55 (75) Room Air 03/28/18 13:45 62 18 118/58 (78) Room Air 03/28/18 13:30 97.3 72 18 117/57 (77) Room Air 03/28/18 13:15 61 18 114/62 (79) Room Air 03/28/18 13:00 60 18 111/57 (75) Room Air 03/28/18 12:50 63 18 112/55 (74) Room Air 03/28/18 12:44 62 18 102/55 (71) Room Air 03/28/18 12:43 65 18 104/58 (73) Room Air 03/28/18 12:40 69 18 94/50 (65) Room Air 03/28/18 12:35 87 18 104/58 (73) 99 Room Air 03/28/18 12:30 76 18 110/59 (76) 100 Room Air 03/28/18 12:25 75 18 115/56 (75) 100 Room Air 03/28/18 12:10 66 18 122/58 (79) 100 Room Air 03/28/18 12:06 69 18 125/60 (81) 100 Room Air 03/28/18 12:03 72 18 136/69 (91) 100 Room Air 03/28/18 12:00 66 18 119/61 (80) 100 Room Air 03/28/18 11:57 73 18 117/62 (80) 100 Room Air 03/28/18 11:54 73 18 119/58 (78) 100 Room Air 03/28/18 11:51 68 18 120/57 (78) 100 Room Air 03/28/18 11:48 73 18 110/60 (77) 100 Room Air 03/28/18 11:45 96.2 71 18 115/59 (77) 100 Room Air 03/28/18 11:43 65 18 118/71 (87) 100 Room Air 03/28/18 11:40 61 18 117/59 (78) 100 Room Air 03/28/18 11:38 64 18 115/53 (73) 98 Room Air 03/28/18 11:36 44 18 76/43 (54) 98 Room Air 03/28/18 11:34 83 18 109/51 (70) 98 Room Air 03/28/18 11:31 68 18 115/61 (79) 97 Room Air 03/28/18 11:28 94 18 118/64 (82) 97 Room Air 03/28/18 11:24 84 18 114/55 (74) 97 Room Air 03/28/18 11:21 95 18 128/69 (88) 97 Room Air 03/28/18 11:18 78 18 125/70 (88) 100 Room Air 03/28/18 11:08 67 18 124/73 (90) 100 Room Air 03/28/18 10:53 72 18 124/65 (84) 03/28/18 10:50 72 18 120/71 (87) 03/28/18 10:40 82 18 118/71 (87) 03/28/18 10:20 78 18 122/76 (91) 03/28/18 08:40 97.4 93 18 125/66 (85) Labs Laboratory Tests 03/28/18 09:40: White Blood Count 11.8H, Red Blood Count 4.31L, Hemoglobin 12.5, Hematocrit 37, Mean Corpuscular Volume 86, Mean Corpuscular Hemoglobin 29, Mean Corpuscular Hemoglobin Concent 34, Red Cell Distribution Width 13.1, Platelet Count 264, Mean Platelet Volume 10.2, Neutrophils (%) (Auto) 82H, Lymphocytes (%) (Auto) 11L, Monocytes (%) (Auto) 6, Eosinophils (%) (Auto) 0, Basophils (%) (Auto) 0, Neutrophils # (Auto) 9.6H, Lymphocytes # (Auto) 1.3, Monocytes # (Auto) 0.8, Eosinophils # (Auto) 0.0, Basophils # (Auto) 0.0 JOHN MORALES DO Mar 28, 2018 21:27
[2018-03-28] MEDS: DOCUSATE SODIUM 100 MG (COLACE) CAP PO SCH (21:38)
[2018-03-28] MEDS: IBUPROFEN 600 MG (MOTRIN) TAB PO SCH (21:46)
[2018-03-28] MEDS ORDERED: CATHETER FLUSH 10 ML SYR IV SCH (22:00)
[2018-03-28] MEDS: CATHETER FLUSH 10 ML SYR IV SCH ×2 (22:17→23:21)
[2018-03-29] VITALS (7 sets, daily range): BP systolic 97–124; BP diastolic 56–72
[2018-03-29] MEDS: IBUPROFEN 600 MG (MOTRIN) TAB PO SCH ×5 (06:49→23:52)
[2018-03-29] MEDS: CATHETER FLUSH 10 ML SYR IV SCH (06:49)
[2018-03-29] MEDS: D5 LR IV SOLUTION 1,000 ML IV SCH (06:50)
[2018-03-29 08:42] LABS: BASOPHILS % (AUTO) 0 % (0-10); EOSINOPHILS % (AUTO) 0 % (0-10); HEMATOCRIT 31 % (35-52); HEMOGLOBIN 10.7 G/DL (11.5-16.0); LYMPHOCYTES # (AUTO) 1.1 X 10^3 (1.0-4.0); LYMPHOCYTES % (AUTO) 7 % (12-44); MEAN CORPUSCULAR HEMOGLOBIN 30 PG (25-34); MEAN CORPUSCULAR HGB CONC 34 G/DL (32-36); MEAN CORPUSCULAR VOLUME 87 FL (80-99); MEAN PLATELET VOLUME 9.9 FL (7.4-10.4); MONOCYTES # (AUTO) 1.2 X 10^3 (0.0-1.0); MONOCYTES % (AUTO) 8 % (0-12); NEUTROPHILS # (AUTO) 12.8 X 10^3 (1.8-7.8); NEUTROPHILS % (AUTO) 85 % (42-75); PLATELET COUNT 237 10^3/uL (130-400); RED BLOOD COUNT 3.62 10^6/uL (4.35-5.85); RED CELL DISTRIBUTION WIDTH 13.5 % (10.0-14.5); WHITE BLOOD COUNT 15.1 10^3/uL (4.3-11.0)
--- NOTE | 2018-03-29 09:05 | Anesthesia-Regional Post-Op ---
Regional Patient Condition Mental Status: Alert, Oriented x3 Circulation: Same as Pre-Op Headache: Absent Sensation: Full Recovery Motor Block: Absent Post Op Complications Complications None Follow Up Care/Instructions Patient Instructions None needed. Anesthesia/Patient Condition Patient is doing well, no complaints, stable vital signs, no apparent adverse anesthesia problems. No complications reported per nursing. NACHO WILLARD CRNA Mar 29, 2018 09:04
[2018-03-29] MEDS: DOCUSATE SODIUM 100 MG (COLACE) CAP PO SCH ×2 (09:15→21:19)
[2018-03-29] MEDS: PRENATAL VITAMIN 1 EA TAB PO SCH ×2 (09:15→09:18)
[2018-03-29] MEDS: FERROUS SULF 325 MG (IRON) TAB PO SCH (09:15)
[2018-03-29 09:31] LABS: LYMPHOCYTES % (MANUAL) 8 %; MONOCYTES % (MANUAL) 4 %; NEUTROPHILS % (MANUAL) 88 %; RBC MORPH NORMAL
--- NOTE | 2018-03-29 13:17 | Postpartum Progress Note ---
Note Note Day # 1 s/p Doing well. Subjective: Patient is without complaints. Ambulating, voiding. Tolerating a regular diet without nausea or vomiting. Normal lochia. Pain is well controlled with oral pain medications. breast feeding. Objective: [ 03/29/18 03/29/18 03/29/18 05:20 08:05 12:10 Temp 97.6 98.0 97.9 Pulse 83 69 93 Resp B/P (MAP) 123/56 (78) 97/59 (72) 124/70 (88) Pulse Ox 96 99 O2 Delivery Room Air Room Air Room Air 03/29/18 00:00 Intake Total 2500 ml Balance 2500 ml Laboratory Tests Test 03/29/18 08:33 Range/Units White Blood Count 15.1 H 4.3-11.0 10^3/uL Red Blood Count 3.62 L 4.35-5.85 10^6/uL Hemoglobin 10.7 L 11.5-16.0 G/DL Hematocrit 31 L 35-52 % Mean Corpuscular Volume 87 80-99 FL Mean Corpuscular Hemoglobin 30 25-34 PG Mean Corpuscular Hemoglobin Concent 34 32-36 G/DL Red Cell Distribution Width 13.5 10.0-14.5 % Platelet Count 237 130-400 10^3/uL Mean Platelet Volume 9.9 7.4-10.4 FL Neutrophils (%) (Auto) 85 H 42-75 % Lymphocytes (%) (Auto) 7 L 12-44 % Monocytes (%) (Auto) 8 0-12 % Eosinophils (%) (Auto) 0 0-10 % Basophils (%) (Auto) 0 0-10 % Neutrophils # (Auto) 12.8 H 1.8-7.8 X 10^3 Lymphocytes # (Auto) 1.1 1.0-4.0 X 10^3 Monocytes # (Auto) 1.2 H 0.0-1.0 X 10^3 Eosinophils # (Auto) 0.0 0.0-0.3 10^3/uL Basophils # (Auto) 0.0 0.0-0.1 10^3/uL Neutrophils % (Manual) 88 % Lymphocytes % (Manual) 8 % Monocytes % (Manual) 4 % Blood Morphology Comment NORMAL Physical Exam: General - Alert and oriented, no apparent distress Abdomen - Soft, appropriately tender to palpation, non-distended, fundus firm at umbilicus Extremities - no edema, negative Quinton's bilaterally Assessment: 1. post- day # 1, status post vacuum assisted vaginal delivery. Recovering well, hemodynamically stable Plan: Routine care. Encourage breast feeding. Encourage ambulation. Ferrous sulfate supplementation. Plan for discharge tomorrow Vitals - Labs Vital Signs - I&O Vital Signs Date Time Temp Pulse Resp B/P (MAP) Pulse Ox O2 Delivery O2 Flow Rate FiO2 03/29/18 12:10 97.9 93 18 124/70 (88) 99 Room Air 03/29/18 08:05 98.0 69 18 97/59 (72) 96 Room Air 03/29/18 05:20 97.6 83 18 123/56 (78) Room Air 03/29/18 01:00 97.6 81 18 110/59 (76) Room Air 03/28/18 23:15 88 18 112/55 (74) Room Air 03/28/18 23:00 97.8 72 18 111/57 (75) Room Air 03/28/18 22:45 72 18 110/58 (75) Room Air 03/28/18 22:30 76 18 110/60 (77) Room Air 03/28/18 22:15 97.8 74 18 115/59 (77) Room Air 03/28/18 22:00 79 18 113/59 (77) Room Air 03/28/18 21:45 97.7 75 18 113/56 (75) Room Air 03/28/18 21:30 96.9 81 18 114/56 (75) Room Air 03/28/18 21:15 96 18 120/57 (78) Room Air 03/28/18 21:00 96.3 85 18 121/58 (79) Room Air 03/28/18 20:45 146 18 115/78 (90) Room Air 03/28/18 20:30 20 Room Air 03/28/18 20:15 20 Room Air 03/28/18 20:00 96 18 137/65 (89) Room Air 03/28/18 19:45 77 18 132/58 (82) Room Air 03/28/18 19:30 96.8 90 18 153/60 (91) Room Air 03/28/18 19:15 93 18 129/75 (93) Room Air 03/28/18 19:00 102 18 133/62 (85) Room Air 03/28/18 18:45 89 18 143/67 (92) Room Air 03/28/18 18:30 81 18 148/79 (102) Room Air 03/28/18 18:15 74 18 128/65 (86) Room Air 03/28/18 18:00 75 18 116/59 (78) Room Air 03/28/18 17:45 84 18 114/63 (80) Room Air 03/28/18 17:30 90 18 114/63 (80) Room Air 03/28/18 17:15 81 18 108/54 (72) Room Air 03/28/18 17:00 97.6 78 18 123/62 (82) Room Air 03/28/18 16:45 68 18 131/62 (85) Room Air 03/28/18 16:30 68 18 118/59 (78) Room Air 03/28/18 16:15 64 18 142/64 (90) Room Air 03/28/18 16:00 66 18 123/60 (81) Room Air 03/28/18 15:45 70 18 138/61 (86) Room Air 03/28/18 15:30 69 18 119/59 (79) Room Air 03/28/18 15:15 72 18 120/57 (78) Room Air 03/28/18 15:00 70 18 119/56 (77) Room Air 03/28/18 14:45 68 18 117/55 (75) Room Air 03/28/18 14:30 66 18 109/62 (78) Room Air 03/28/18 14:15 65 18 109/55 (73) Room Air 03/28/18 14:00 70 18 115/55 (75) Room Air 03/28/18 13:45 62 18 118/58 (78) Room Air 03/28/18 13:30 97.3 72 18 117/57 (77) Room Air I & O 03/29/18 07:00 Intake Total 4000 ml Balance 4000 ml Labs Laboratory Tests 03/29/18 08:33: White Blood Count 15.1H, Red Blood Count 3.62L, Hemoglobin 10.7L, Hematocrit 31L , Mean Corpuscular Volume 87, Mean Corpuscular Hemoglobin 30, Mean Corpuscular Hemoglobin Concent 34, Red Cell Distribution Width 13.5, Platelet Count 237, Mean Platelet Volume 9.9, Neutrophils (%) (Auto) 85H, Lymphocytes (%) (Auto) 7L , Monocytes (%) (Auto) 8, Eosinophils (%) (Auto) 0, Basophils (%) (Auto) 0, Neutrophils # (Auto) 12.8H, Lymphocytes # (Auto) 1.1, Monocytes # (Auto) 1.2H, Eosinophils # (Auto) 0.0, Basophils # (Auto) 0.0, Neutrophils % (Manual) 88, Lymphocytes % (Manual) 8, Monocytes % (Manual) 4, Blood Morphology Comment NORMAL JOHN MORALES DO Mar 29, 2018 13:17
[2018-03-29] MEDS ORDERED: ACHD5005 PO (13:19)
[2018-03-29] MEDS ORDERED: IBUP-1773 PO (13:19)
--- NOTE | 2018-03-29 13:21 | Discharge Inst-Women's Service ---
Discharge Inst-Women's Serv Depart Medication/Instructions New, Converted or Re-Newed RX: RX on Chart Final Diagnosis spontaneous rupture of membranes labor epidural vacuum assisted delivery polypoid lesion right buttock, with removal meconium Consults/Follow Up Additional Follow Up: Yes (2 weeks and 6 weeks) Activity Activity: Activity as Tolerated Driving Instructions: You May Drive NO SMOKING: NO SMOKING Nothing Inside Vagina: No Douching, No Bowlus, No Tampons Diet Discharge Diet: No Restrictions Symptoms to Report to : Bleeding Excessive, Pain Increased, Fever Over 101 Degrees F, Vaginal Bleeding Increase, Vaginal Discharge Foul For Any Problems or Questions: Contact Your Physician JOHN MORALES DO Mar 29, 2018 13:21
[2018-03-30 05:54] VITALS: BP 100/57
[2018-03-30] MEDS: IBUPROFEN 600 MG (MOTRIN) TAB PO SCH ×3 (05:56→17:59)
--- NOTE | 2018-03-30 08:35 | Progress Note-Standard ---
Standard Progress Note Progress Notes/Assess & Plan Date Seen by a Provider: Mar 30, 2018 Time Seen by a Provider: 08:34 Progress/Assessment & Plan This patient is without complaint. She is ambulating, voiding, tolerating oral intake well has good pain control and is requesting discharge home. Vital Signs 03/30/18 05:54 Temp 98.1 Pulse 63 Resp 18 B/P (MAP) 100/57 (71) Pulse Ox 99 O2 Delivery Room Air Vital signs are stable. Patient afebrile. Fundus firm below the umbilicus and nontender. Extremities show no clubbing cyanosis. There is no Homans sign. There is some pretibial pitting edema that is normal. Assessment and plan day number 2 status post vaginal delivery doing well. Plan for discharge home with follow-up in clinic Final Diagnosis Vaginal delivery JOSEPH NICOLE MD Mar 30, 2018 8:35 am
[2018-03-30 09:00] VITALS: BP 103/61
[2018-03-30] MEDS: PRENATAL VITAMIN 1 EA TAB PO SCH (09:13)
[2018-03-30] MEDS: FERROUS SULF 325 MG (IRON) TAB PO SCH (09:13)
[2018-03-30] MEDS: DOCUSATE SODIUM 100 MG (COLACE) CAP PO SCH (09:14)
[2018-03-30 12:30] VITALS: BP 100/64
[2018-03-30 18:01] VITALS: BP 120/67
== END 2018-03-30 19:43 | disposition home or self-care (01) | DRG 806 ==
LOC: WSo 08:29 → LDRP 08:29 → WSo 08:55 → LDRP 03-29
PROVIDERS: ADMIT Obstetrics & Gynecology; ATTEND Obstetrics & Gynecology
PROC: 10D07Z6 Extraction of Products of Conception, Vacuum, Via Natural or Artificial Opening (ICD-10-PCS; principal; 2018-03-28)
PROC: 0KQM0ZZ Repair Perineum Muscle, Open Approach (ICD-10-PCS; 2018-03-28)
PROC: 0HB8XZZ Excision of Buttock Skin, External Approach (ICD-10-PCS; 2018-03-28)
DX: O99.413 Diseases of the circulatory system complicating pregnancy, third trimester (principal); I42.9 Cardiomyopathy, unspecified; O76 Abnormality in fetal heart rate and rhythm complicating labor and delivery; O70.1 Second degree perineal laceration during delivery; O69.81X0 Labor and delivery complicated by cord around neck, without compression, not applicable or unspecified; O77.0 Labor and delivery complicated by meconium in amniotic fluid; D23.5 Other benign neoplasm of skin of trunk; Z3A.39 39 weeks gestation of pregnancy; Z37.0 Single live birth
CPT/HCPCS: 36415; 83033; 85007; 85025; 85027; 86850; 86900; 86901; 90471; 99212

== ENCOUNTER → 2020-04-27 | Outpatient (CLI) | payer OTHER ==
[~2020-04-27] MED LIST changes: +ACHD5005 PO; +IBUP-1773 PO; +PREN-53 PO
== END ==
LOC: CARD 09:00
PROVIDERS: ATTEND Internal Medicine Cardiovascular Disease
DX: R55 Syncope and collapse (principal); R07.89 Other chest pain
CPT/HCPCS: 93225; 93226; 93306; 93351

== ENCOUNTER 2020-07-10 03:53 | Emergency (ER) | payer OTHER ==
[~2020-07-10] VITALS: Ht 163 cm; Wt 92.5 kg
[2020-07-10 04:07] VITALS: BP 112/63
[2020-07-10] MEDS ORDERED: LEVO25TA2 PO (04:12)
[2020-07-10] MEDS ORDERED: ORPH100T PO (04:24)
[2020-07-10] MEDS ORDERED: KETO10TA PO (04:24)
--- NOTE | 2020-07-10 04:24 | ED Upper Extremity ---
General Chief Complaint: Upper Extremity Stated Complaint: UPPER BACK NECK & SHOULDER PAIN Nursing Triage Note: woke up at 0200 with left shoulder/neck/arm pain Nursing Sepsis Screen: No Definite Risk Source: patient History of Present Illness Date Seen by Provider: Jul 10, 2020 Time Seen by Provider: 04:12 Initial Comments PT ARRIVES VIA POV FROM HOME STATES SHE WOKE UP AT 0200 WITH PAIN IN LEFT SHOULDER/LATERAL NECK/LEFT UPPER SCAPULA AREA PAIN IS MUCH WORSE WITH ANY MOVEMENT OF LEFT ARM OR TURNING HER NECK NO PARESTHESIAS OR MOTOR DEFICITS NO KNOWN INJURY, BUT STATES SHE WORKED OUT YESTERDAY PT IS RIGHT HANDED NO PRIOR INJURY OR SIMILAR PROBLEMS PT STATES SHE HAS A DESK JOB--NO HEAVY LIFTING, ETC. AT WORK. PT STATES SHE TOOK 600 MG IBUPROFEN AT 0200 AND PUT HEAT ON IT, WITHOUT RELIEF NO CHEST PAIN NO SHORTNESS OF BREATH NO DIAPHORESIS NO COUGH OR RECENT ILLNESS NO FEVER LMP 06/14/20. NORMAL. NO CONTROL PCP: DR. MELO KELLY [facility] SPECIALIST: DR. THAO--STATES SHE RECENTLY HAD COMPLETE CHECK UP AND ALL WAS NORMAL. Allergies and Home Medications Allergies Coded Allergies: Sulfa (Sulfonamide Antibiotics) (Verified Allergy, Unknown, 09/30/17) latex (Verified Allergy, Unknown, 09/30/17) Home Medications Ketorolac Tromethamine 10 Mg Tablet, 10 MG PO Q6H Prescribed by: JULIANN PINZON on 07/10/20423 Orphenadrine Citrate 100 Mg Tablet.er, 100 MG PO TID Prescribed by: JULIANN PINZON on 07/10/20423 Patient Home Medication List Home Medication List Reviewed: Yes Review of Systems Constitutional: no symptoms reported EENTM: no symptoms reported Respiratory: no symptoms reported Cardiovascular: no symptoms reported Gastrointestinal: no symptoms reported Genitourinary: no symptoms reported : No LMP: Jun 14, 2020 Control/STD Prophylaxis: None Musculoskeletal: see HPI Skin: no symptoms reported; No rash Psychiatric/Neurological: No Symptoms Reported Past Vllurcg-Oivjnh-Wlbkkf Hx Past Med/Social Hx: Reviewed and Corrections made Patient Social History Alcohol Use: Denies Use Smoking Status: Never a Smoker Recent Infectious Disease Expo: No Recent Hopitalizations: No Immunizations Up To Date Tetanus Booster (TDap): Less than 5yrs PED Vaccines UTD: No Date of Influenza Vaccine: Feb 25, 2018 Seasonal Allergies Seasonal Allergies: No Past Medical History Surgeries: Yes (ASD REPAIR AGE 10) Cardiac Respiratory: No Cardiac: Yes (ASD REPAIR AGE 10; VASOVAGAL SYNCOPAL EPISODES) Congenital Heart Disease, Heart Murmur, Syncope Neurological: No : No Last Menstrual Period: Jun 14, 2020 Reproductive Disorders: No Female Reproductive Disorders: Denies Sexually Transmitted Disease: No HIV/AIDS: No Genitourinary: No Gastrointestinal: No Musculoskeletal: No Endocrine: Yes Hypothyroidsim HEENT: No Loss of Vision: Bilateral Cancer: No Psychosocial: No Integumentary: No Blood Disorders: No Adverse Reaction/Blood Tranf: No Family Medical History Hypertension 19 FATHER 19 MOTHER No Pertinent Family Hx Physical Exam Vital Signs Vital Signs - First Documented 07/10/20 04:07 Temp 36.2 Pulse 98 Resp 18 B/P (MAP) 112/63 (79) Pulse Ox 98 O2 Delivery Room Air Capillary Refill : Less Than 3 Seconds Height, Weight, BMI Height: 5'3.00" Weight: 212lbs. 4.0oz. 96.410187cg; 34.00 BMI Method:Stated General Appearance: WD/WN Neck: No tender midline; other (TENDERNESS AND MUSCLE SPASMS TO LEFT LATERAL CERVICAL PARAVERTEBRAL MUSCLES AND LEFT TRAPEZIUS MUSCLE. NO BONY TENDERNESS. ) Cardiovascular: regular rate, rhythm Respiratory: chest non-tender, normal breath sounds Gastrointestinal: soft Back: no CVA tenderness, no vertebral tenderness, other (TENDERNESS AND MUSCLE SPASMS TO LEFT TRAPEZIUS MUSCLE--PALPATION REPRODUCES PAIN . ) Shoulder: No bone tenderness; limited ROM, soft tissue tenderness ( ABOVE--TENDERNESS AND SPASMS ARE DIRECTLY OVER LEFT TRAPEZIUS MUSCLE) Elbow/Forearm: normal inspection Wrist: Yes normal inspection Hand: normal inspection Neurologic/Tendon: normal sensation, normal motor functions, normal tendon functions Neurologic/Psychiatric: harpsichord maker II-XII nml as tested, no motor/sensory deficits, alert, normal mood/affect, oriented x 3 Skin: normal color, warm/dry; No rash Progress/Results/Core Measures Results/Orders My Orders Orders - JULIANN PINZON DO Ketorolac Injection (Toradol Injection) (07/10/20 04:30) Orphenadrine Inj (Ed Only) (Norflex Inje (07/10/20 04:30) Vital Signs/I&O 07/10/20 04:07 Temp 36.2 Pulse 98 Resp 18 B/P (MAP) 112/63 (79) Pulse Ox 98 O2 Delivery Room Air Blood Pressure Mean: 79 Departure Impression Primary Impression: LEFT TRAPEZIUS MUSCLE PAIN AND SPASM Disposition: 01 HOME, SELF-CARE Condition: Stable Departure-Patient Inst. Referrals: MELO KELLY MD (PCP/Family) Primary Care Physician Patient Instructions: Muscle Spasms (DC), Muscle Strain (DC) Add. Discharge Instructions: MOIST HEAT TO SORE AREA AT 20 MINUTE INTERVALS NO LIFTING OVER 5 LBS OR STRENUOUS ACTIVITY WITH LEFT ARM X 1 WEEK FOLLOW UP WITH DR. KELLY IN 3-4 DAYS IF NO BETTER All discharge instructions reviewed with patient and/or family. Voiced understanding. Scripts Ketorolac Tromethamine (Ketorolac Tromethamine) 10 Mg Tablet 10 MG PO Q6H for Pain, #15 TAB Prov: JULIANN PINZON DO 07/10/20 Orphenadrine Citrate (Orphenadrine Citrate) 100 Mg Tablet.er 100 MG PO TID, #15 TAB Prov: JULIANN PINZON DO 07/10/20 JULIANN PINZON DO Jul 10, 2020 04:24
[2020-07-10] MEDS ORDERED: ORPHENADRINE 60 MG/2 ML (NORFLEX) AMP (ED ONLY) IM ONE (04:30)
[2020-07-10] MEDS ORDERED: KETOROLAC 60 MG/2 ML VIAL IM ONE (04:30)
== END 2020-07-10 04:32 | disposition home or self-care (01) ==
LOC: EDUNIT# 03:53 → ER 03:56
DX: M62.830 Muscle spasm of back (principal); Z88.2 Allergy status to sulfonamides; Z91.040 Latex allergy status; Z82.49 Family history of ischemic heart disease and other diseases of the circulatory system
CPT/HCPCS: 99284

== ENCOUNTER → 2021-02-18 | Outpatient (CLI) | payer OTHER ==
[~2021-02-18] MED LIST changes: +KETO10TA PO; +LEVO25TA2 PO; +ORPH100T PO
--- NOTE | 2021-02-18 15:15 | Diagnostic Imaging Report ---
PROCEDURE: US PELVIC (NON OB) TECHNIQUE: Multiple real-time grayscale images were obtained over the pelvis in various projections transabdominally. INDICATION: Irregular menses x4 months. Pelvic pain right worse than left. EXAMINATION: Pelvic sonogram, transvaginal, transpelvic 02/18/2021 FINDINGS: Uterus is 8.5 cm in length, endometrium 0.3 cm in thickness. Both ovaries normal in size and appearance with bilateral follicles noted. There is bilateral normal blood flow to the ovaries with no adnexal masses appreciated. Trace free fluid in the pelvis likely physiologic. IMPRESSION: 1. Physiologic findings. No acute abnormality. Dictated by: Dictated on workstation # [id number]
== END ==
LOC: RAD 13:22
PROVIDERS: ATTEND Obstetrics & Gynecology
DX: N92.6 Irregular menstruation, unspecified (principal); R10.2 Pelvic and perineal pain
CPT/HCPCS: 76856

== ENCOUNTER → 2021-05-19 | Outpatient (CLI) | payer OTHER ==
--- NOTE | 2021-05-19 11:38 | Diagnostic Imaging Report ---
EXAMINATION: US Abdomen limited. TECHNIQUE: Multiple real-time grayscale images were obtained over the right upper quadrant in various projections. HISTORY: RUQ PAIN, N/V COMPARISON: None available. FINDINGS: Pancreas: The visualized portions of the pancreas are normal. Liver: The liver is normal in echogenicity and contour. No focal lesions are seen. The portal vein is patent with hepatopetal flow. Gallbladder and biliary tree: Gallbladder is normal without wall thickening, pericholecystic fluid, or sonographic Arteaga sign. There is no biliary ductal dilation. The common duct measures 0.5 cm. Right kidney: The right kidney is normal without hydronephrosis. Aorta and IVC: The visualized aorta and inferior vena cava are normal. Fluid: No ascites is seen. IMPRESSION: 1. Unremarkable right upper quadrant ultrasound. Dictated by: Dictated on workstation # [id number]
[2021-05-19 11:44] LABS: HEMATOCRIT 43 % (35-52); HEMOGLOBIN 14.2 g/dL (11.5-16.0); MEAN CORPUSCULAR HEMOGLOBIN 28 pg (25-34); MEAN CORPUSCULAR HGB CONC 33 g/dL (32-36); MEAN CORPUSCULAR VOLUME 86 fL (80-99); MEAN PLATELET VOLUME 9.1 fL (9.0-12.2); PLATELET COUNT 334 10^3/uL (130-400); WHITE BLOOD COUNT 6.7 10^3/uL (4.3-11.0)
[2021-05-19 12:05] LABS: ALANINE AMINOTRANSFERASE 19 U/L (0-55); ALBUMIN 4.8 GM/DL (3.2-4.5); ALKALINE PHOSPHATASE 68 U/L (40-136); BILIRUBIN,TOTAL 0.8 MG/DL (0.1-1.0); BUN/CREATININE RATIO 14; CALCIUM 10.1 MG/DL (8.5-10.1); CARBON DIOXIDE 24 MMOL/L (21-32); CHLORIDE 106 MMOL/L (98-107); CREATININE SERUM 0.72 MG/DL (0.60-1.30); GFR ESTIMATED 94; GLUCOSE 100 MG/DL (70-105); POTASSIUM 3.8 MMOL/L (3.6-5.0); SODIUM 142 MMOL/L (135-145); TOTAL PROTEIN 7.7 GM/DL (6.4-8.2)
== END ==
LOC: RAD 10:30
PROVIDERS: ATTEND Family Medicine
DX: R10.11 Right upper quadrant pain (principal); R11.2 Nausea with vomiting, unspecified
CPT/HCPCS: 36415; 76705; 80053; 85027

== ENCOUNTER → 2021-06-22 | Outpatient (CLI) | payer OTHER ==
--- NOTE | 2021-06-22 16:00 | Diagnostic Imaging Report ---
PROCEDURE: Pelvic comp/transvaginal sonogram. TECHNIQUE: Complete transabdominal and transvaginal pelvic ultrasound was performed. In addition, limited pelvic Doppler was performed. INDICATION: Abnormal uterine bleeding. FINDINGS: The uterus is retroverted measuring 9.1 x 5.0 x 5.2 cm. The endometrium is 9 mm in thickness. There may be a small amount of fluid in the endometrial canal. There is an echogenic lesion in the anterior uterine body measuring 3.0 x 1.6 x 2.0 cm, likely a fibroid. The right ovary measures 3.0 x 1.8 x 2.1 cm and the left ovary measures 4.5 x 3.3 x 3.7 cm. The right ovary contains small follicles and shows normal blood flow. The left ovary does contain a septated cystic lesion which measures 3.2 x 2.9 x 2.9 cm. There is some vascularity within the septation. No nodularity is seen. There is blood flow to the left ovary. No free fluid is seen. IMPRESSION: 1. Uterine fibroid. 2. Complex, septated cystic lesion in the left ovary, as described. Followup in 6-8 weeks is recommended to confirm clearing. Dictated by: Dictated on workstation # [id number]
== END ==
LOC: RAD 13:45
PROVIDERS: ATTEND Family Medicine
DX: D25.9 Leiomyoma of uterus, unspecified (principal); N83.202 Unspecified ovarian cyst, left side
CPT/HCPCS: 76830; 76856

== ENCOUNTER → 2021-08-10 | Outpatient (CLI) | payer OTHER ==
--- NOTE | 2021-08-10 15:24 | Diagnostic Imaging Report ---
PROCEDURE: Pelvic comp/transvaginal sonogram. TECHNIQUE: Complete transabdominal and transvaginal pelvic ultrasound was performed. In addition, limited pelvic Doppler was performed. INDICATION: Follow-up left ovarian cyst. CORRELATION is made with prior exam from 06/22/2021. The uterus is retroverted measuring 7.8 x 3.7 x 5.6 cm. The endometrium is 4 mm in thickness. No myometrial mass is detected. Right ovary measures 3.3 x 2.6 x 2.5 cm and the left ovary measures 3.7 x 2.0 x 2.0 cm. Previously noted septated cystic mass left ovary has resolved. No new mass is seen. There is normal vascularity to both ovaries. No free fluid is seen. IMPRESSION: Resolution of previously noted septated left ovarian cyst when compared with exam from 06/22/2021. Dictated by: Dictated on workstation # [id number]
== END ==
LOC: RAD 13:15
PROVIDERS: ATTEND Family Medicine
DX: N83.292 Other ovarian cyst, left side (principal)
CPT/HCPCS: 76830; 76856

== ENCOUNTER → 2021-10-06 | Outpatient (CLI) | payer OTHER ==
[~2021-10-06] VITALS: Ht 160 cm; Wt 97.7 kg
[~2021-10-06] MED LIST changes: +PANT20TA18 PO
== END | disposition home or self-care (01) ==
LOC: PREOP 05:28
PROVIDERS: ATTEND Obstetrics & Gynecology
DX: Z01.818 Encounter for other preprocedural examination (principal)

== ENCOUNTER 2021-10-13 08:01 | Day surgery (SDC) | payer OTHER ==
[~2021-10-13] VITALS: Ht 160 cm; Wt 97.7 kg
[2021-10-13] VITALS (13 sets, daily range): BP systolic 98–119; BP diastolic 52–75
[2021-10-13] MEDS: LACTATED RINGERS 1,000 ML IV PRN ×2 (08:30→11:30)
[2021-10-13] MEDS ORDERED: ONDANSETRON 4 MG/2 ML (SDV) Z0FRAN IV ONE (08:30)
[2021-10-13] MEDS ORDERED: BUPIVACAINE 0.5% 30 ML (SENSORCAINE) VIAL ONE (09:29)
--- NOTE | 2021-10-13 09:49 | Progress Note-Pre Operative ---
Pre-Operative Progress Note H&P Reviewed The H&P was reviewed, patient examined and no changes noted. Time Seen by Provider: 09:35 Date H&P Reviewed: Oct 13, 2021 Time H&P Reviewed: 09:35 Pre-Operative Diagnosis: AUB, pelvic pain, dyspareunia, history of polyp KIMANI DANIELS MD Oct 13, 2021 09:49
[2021-10-13] MEDS ORDERED: OXYC5CAP18 PO (09:50)
[2021-10-13] MEDS ORDERED: LIDOCAINE PF 2% 5 ML (XYLOCAINE) VIAL ONE (09:59)
[2021-10-13] MEDS ORDERED: ONDANSETRON 4 MG/2 ML (SDV) Z0FRAN ONE (09:59)
[2021-10-13] MEDS ORDERED: ROCURONIUM 50 MG/5 ML (ZEMURON) VIAL IV ONE (09:59)
[2021-10-13] MEDS ORDERED: proPOfol 200 MG/20 ML (DIPRIVAN) VIAL IV ONE (09:59)
[2021-10-13] MEDS ORDERED: MIDAZOLAM 2 MG/2 ML (VERSED) VIAL ONE (10:01)
[2021-10-13] MEDS ORDERED: fentaNYL INJ 100 MCG/2 ML AMP ONE (10:02)
[2021-10-13] MEDS ORDERED: LIDOCAINE/EPI 2% 1:200,00 (XYLOCAINE) 10 ML VIAL ONE (10:17)
[2021-10-13] MEDS ORDERED: SEVOFLURANE (ULTANE) 15 ML INHAL SOLN ONE (12:03)
[2021-10-13] MEDS ORDERED: NEOSTIGMINE 3 MG/3 ML VIAL ONE (12:04)
[2021-10-13] MEDS ORDERED: GLYCOPYRROLATE 0.2 MG/ML (ROBINUL) 2 ML VIAL ONE (12:04)
--- NOTE | 2021-10-13 12:13 | OB/GYN Operative Report ---
Operative Report Date of Procedure:Oct 13, 2021 Preoperative Diagnosis: Abnormal uterine bleeding dyspareunia and left lower quadrant pain Postoperative Diagnosis: [As above with endometrial polyps and endometriosis Name of the Procedure: [Hysteroscopy D&C, diagnostic laparoscopy with fulguration of endometriosis] Surgeon: Kimani Daniels Sharepoint Web Developer(s): [none] Anesthesia: [General] Indications for Procedure: [] As above Findings of the Procedure: [] Normal-appearing uterus tubes ovaries and uterosacral ligaments. Immediately medial to the left uterosacral ligament and the posterior cul-de-sac is a 2 x 1 cm area of endometriotic implants. Normal- appearing cervix vagina. Endocervix with a small polypoid-like projection and several small polypoid-like projections within the endometrial cavity. Bilateral tubal ostia visualized without difficulty Name and Description of the Procedure: After the recent events alternative the procedure were described to the patient using the operating room and general anesthesia was obtained at difficulty. She is placed in dorsal lithotomy position and prepped and draped in usual sterile fashion. And a Hendricks catheter was placed and a weighted speculum was was in the patient's vagina. The anterior lip of the cervix was grasped with a single- tooth tenaculum and again manipulator placed without difficulty and other remainder instruments removed from the patient's vagina and attention turned the abdominal region the procedure. A 5 mm skin incision was made umbilical fold and a varies needle advanced all tenting the abdominal upward. Pneumoperitoneum was achieved the varies needle is removed and a 5 mm trocar and sleeve were advanced under direct visualization without difficulty. Smooth liver edge was noted patient was placed in Trendelenburg and a second 5 m incision was made in the midline in the suprapubic region and a 5 mm trocar sleeve advance for direct visualization without difficulty. The pelvis surveyed with the above findings. Kleppinger was used to fulgurate the noted endometriotic lesion taking special care to avoid the course of the ureter. All instruments removed and the patient's abdomen the skin was closed subcuticular 4 Monocryl stitch. Attention was turned back to the vaginal portion. The manipulator was removed and a weighted speculum was placed and a true clear hysteroscope was advanced without difficulty under direct visualization. The above findings were noted and the incisor was used to remove all polypoid tissue and takes specimen from all quadrants of the cavity for biopsy. All instr uments removed in the patient's vagina. Hemostasis was assured. Patient tolerated the procedure well sponge lap needle instrument counts were correct and she is taken the recovery room awake and in stable condition Complications: None KIMANI DANIELS MD Oct 13, 2021 12:13
--- NOTE | 2021-10-13 12:22 | Anesthesia-General Post-Op ---
General Patient Condition Mental Status/LOC: Same as Preop Cardiovascular: Satisfactory Nausea/Vomiting: Absent Respiratory: Satisfactory Pain: Controlled Complications: Absent Post Op Complications Complications None Follow Up Care/Instructions Patient Instructions None needed. Anesthesia/Patient Condition Patient Condition Patient is doing well, no complaints, stable vital signs, no apparent adverse anesthesia problems. No complications reported per nursing. AN CHIN CRNA Oct 13, 2021 12:22
[2021-10-13] MEDS ORDERED: morphine INJ 10 MG/ML 1ML (SYR OR VIAL) IVP ONE (12:30)
[2021-10-13] MEDS ORDERED: fentaNYL INJ 100 MCG/2 ML AMP IVP ONE (12:30)
[2021-10-13] MEDS ORDERED: ONDANSETRON 4 MG/2 ML (SDV) Z0FRAN IVP PRN (12:30)
[2021-10-13] MEDS ORDERED: PROMETHAZINE INJ 25 MG/ML (PHENERGAN) AMP ONE (13:28)
[2021-10-13] MEDS ORDERED: PROMETHAZINE INJ 25 MG/ML (PHENERGAN) AMP IVP ONE (13:45)
== END 2021-10-13 15:15 ==
LOC: SDC 08:01
PROVIDERS: ATTEND Obstetrics & Gynecology
DX: N80.9 Endometriosis, unspecified (principal); N84.0 Polyp of corpus uteri; N94.10 Unspecified dyspareunia; N93.9 Abnormal uterine and vaginal bleeding, unspecified
CPT/HCPCS: 84703; 87081

== ENCOUNTER 2022-09-26 05:29 | Outpatient (CLI) | payer OTHER ==
[~2022-09-26] VITALS: Ht 162.5 cm; Wt 98.2 kg
[~2022-09-26 05:29] MED LIST changes: -ORPH100T PO; +ORPH100T3 PO; +OXYC5CAP18 PO
[2022-10-03] MEDS ORDERED: HYDR-34 PO (07:11)
[2022-10-03] MEDS ORDERED: IBUP-844 PO (07:11)
[2022-10-03] MEDS ORDERED: DOCU100C37 PO (07:11)
[2022-10-03] MEDS ORDERED: SIME80TA16 PO (07:11)
== END 2022-09-27 15:53 | disposition home or self-care (01) ==
LOC: PREOP 05:29
PROVIDERS: ATTEND Obstetrics & Gynecology
DX: Z01.818 Encounter for other preprocedural examination (principal)

== ENCOUNTER 2022-10-03 05:52 | Day surgery (SDC) | payer OTHER ==
[~2022-10-03] VITALS: Ht 162.5 cm; Wt 98.2 kg
[2022-10-03] VITALS (13 sets, daily range): BP systolic 85–123; BP diastolic 43–76
[2022-10-03] MEDS ORDERED: ceFAZolin INJECTION 2,000 MG in NS (IVPB) 50 ML IV ONE (06:15)
[2022-10-03] MEDS ORDERED: metroNIDAZOLE 500MG/100ML IVPB 100 ML IV ONE (06:15)
[2022-10-03 06:46] LABS: BASOPHILS # (AUTO) 0.1 10^3/uL (0.0-0.1); BASOPHILS % (AUTO) 1 % (0-10); EOSINOPHILS # (AUTO) 0.1 10^3/uL (0.0-0.3); EOSINOPHILS % (AUTO) 2 % (0-10); HEMATOCRIT 38 % (35-52); HEMOGLOBIN 12.7 g/dL (11.5-16.0); LYMPHOCYTES # (AUTO) 1.6 10^3/uL (1.0-4.0); LYMPHOCYTES % (AUTO) 27 % (12-44); MEAN CORPUSCULAR HEMOGLOBIN 28 pg (25-34); MEAN CORPUSCULAR HGB CONC 34 g/dL (32-36); MEAN CORPUSCULAR VOLUME 85 fL (80-99); MEAN PLATELET VOLUME 9.7 fL (9.0-12.2); MONOCYTES # (AUTO) 0.4 10^3/uL (0.0-1.0); MONOCYTES % (AUTO) 7 % (0-12); NEUTROPHILS # (AUTO) 3.7 10^3/uL (1.8-7.8); NEUTROPHILS % (AUTO) 62 % (42-75); PLATELET COUNT 310 10^3/uL (130-400)
[2022-10-03] MEDS ORDERED: BUPIVACAINE 0.25% 30 ML (SENSORCAINE) VIAL ONE (06:54)
[2022-10-03] MEDS ORDERED: ONDANSETRON 4 MG/2 ML (SDV) Z0FRAN IV ONE (07:00)
[2022-10-03] MEDS ORDERED: FAMOTIDINE 20MG/2ML IV (PEPCID) IV ONE (07:00)
[2022-10-03] MEDS ORDERED: NEOSTIGMINE (BLOXIVERZ ) 1 MG/1ML 10 ML VIAL ONE (07:02)
[2022-10-03] MEDS ORDERED: ONDANSETRON 4 MG/2 ML (SDV) Z0FRAN ONE (07:02)
[2022-10-03] MEDS ORDERED: ROCURONIUM 50 MG/5 ML (ZEMURON) VIAL IV ONE (07:02)
[2022-10-03] MEDS ORDERED: fentaNYL INJ 100 MCG/2 ML AMP ONE (07:02)
[2022-10-03] MEDS ORDERED: MIDAZOLAM 2 MG/2 ML (VERSED) VIAL ONE (07:02)
[2022-10-03] MEDS ORDERED: GLYCOPYRROLATE 0.2 MG/ML (ROBINUL) 2 ML VIAL ONE (07:02)
[2022-10-03] MEDS ORDERED: proPOfol 200 MG/20 ML (DIPRIVAN) VIAL IV ONE (07:02)
[2022-10-03] MEDS ORDERED: LIDOCAINE PF 2% 5 ML (XYLOCAINE) VIAL ONE (07:02)
[2022-10-03] MEDS: LACTATED RINGERS 1,000 ML IV PRN ×2 (07:03→09:15)
--- NOTE | 2022-10-03 07:06 | Progress Note-Pre Operative ---
Pre-Operative Progress Note Date of Available H&P: October 03, 2022 Date H&P Reviewed: October 03, 2022 Time H&P Reviewed: 07:05 History & Physical: H&P Reviewed, Patient Examed, No changes noted Pre-Operative Diagnosis: AUB, Chronic pelvic pain, Endometriosis, Dysmenorrhea, Dyspareunia HERIBERTO ARAUZ DO October 03, 2022 07:06
--- NOTE | 2022-10-03 07:10 | Discharge Inst-Women's Service ---
Discharge Inst-Women's Serv Depart Medication/Instructions New, Converted or Re-Newed RX: Transmitted to Pharmacy Problems Reviewed?: Yes Consults/Follow Up Additional Follow Up: Yes Orders/Referrals Dr. Blackman in 7-10 days and in 8 weeks Activity Activity: Activity as Tolerated Driving Instructions: No Driving for 1 Week NO SMOKING: NO SMOKING Nothing Inside Vagina: No Douching, No [place], No Tampons Diet Discharge Diet: No Restrictions Symptoms to Report to : Bleeding Excessive, Pain Increased, Fever Over 101 Degrees F, Vaginal Bleeding Increase, Questions/Concerns For Any Problems or Questions: Contact Your Physician Skin/Wound Care Infection Signs and Symptoms: Increased Redness, Foul Odor of Wound, Increased Drainage, Skin Itchy or Has a Rash, Increased Swelling, Temperature Above 101 F Operative Area Clean and Dry: Keep Incision Clean/Dry Stitches/Shelbie/Dermabond: Dermabond, Care of Stitches Bathing Instructions: HERIBERTO Zhao DO October 03, 2022 07:10
[2022-10-03] MEDS ORDERED: HYDR-34 PO (07:11)
[2022-10-03] MEDS ORDERED: SIME80TA16 PO (07:11)
[2022-10-03] MEDS ORDERED: DOCU100C37 PO (07:11)
[2022-10-03] MEDS ORDERED: IBUP-844 PO (07:11)
[2022-10-03] MEDS ORDERED: HYDROcodone/APAP 7.5 MG/325 MG (LORTAB, LORCET PLUS) TABLET PO PRN (07:15)
[2022-10-03] MEDS ORDERED: ONDANSETRON 4 MG/2 ML (SDV) Z0FRAN IV PRN (07:15)
[2022-10-03] MEDS ORDERED: DOCUSATE SODIUM 100 MG (COLACE) CAP PO PRN (07:15)
[2022-10-03] MEDS ORDERED: SIMETHICONE 80 MG (MYLICON) CHEW PO PRN (07:15)
[2022-10-03] MEDS ORDERED: LACTATED RINGERS 1,000 ML IV SCH (07:15)
[2022-10-03] MEDS ORDERED: ZOLPIDEM 5 MG (AMBIEN) TAB PO PRN (07:15)
[2022-10-03] MEDS ORDERED: ANTACID SUSP 30 ML UDC (MYLANTA) PO PRN (07:15)
[2022-10-03] MEDS ORDERED: BENZOCAINE LOZENGES 1 EACH LOZENGE MM PRN (07:15)
[2022-10-03] MEDS ORDERED: HYDROmorphone 2 MG/ML VIAL (DILAUDID) IV PRN (07:15)
[2022-10-03] MEDS ORDERED: BUPIVACAINE 0.25% 30 ML (SENSORCAINE) VIAL INJ ONE (07:58)
[2022-10-03] MEDS ORDERED: ONDANSETRON 4 MG/2 ML (SDV) Z0FRAN IVP PRN (08:45)
[2022-10-03] MEDS ORDERED: HYDROmorphone 2 MG/ML VIAL (DILAUDID) IV ONE (08:45)
[2022-10-03] MEDS ORDERED: morphine INJ 10 MG/ML 1ML (SYR OR VIAL) IVP ONE (08:45)
[2022-10-03] MEDS ORDERED: KETOROLAC 30 MG/ML VIAL ONE (08:47)
[2022-10-03] MEDS: KETOROLAC 30 MG/ML VIAL IVP PRN ×2 (08:49→15:08)
[2022-10-03] MEDS ORDERED: morphine INJ 10 MG/ML 1ML (SYR OR VIAL) ONE (09:05)
--- NOTE | 2022-10-03 09:22 | Anesthesia-General Post-Op ---
General Patient Condition Mental Status/LOC: Same as Preop Cardiovascular: Satisfactory Nausea/Vomiting: Absent Respiratory: Satisfactory Pain: Controlled Complications: Absent Post Op Complications Complications None Follow Up Care/Instructions Patient Instructions None needed. Anesthesia/Patient Condition Patient Condition Patient is awake in PACU and doing well, C/O some abdominal pain which is to be expected, stable vital signs, no apparent adverse anesthesia problems. No complications reported per nursing. MIAH EDMONDS DO October 03, 2022 09:22
--- NOTE | 2022-10-03 18:54 | OPERATIVE REPORT ---
DATE OF SERVICE: 10/03/2022 PREOPERATIVE DIAGNOSES: 1. A 31-year-old female with chronic pelvic pain. 2. Abnormal uterine bleeding. 3. Endometriosis. 4. Dysmenorrhea. 5. Dyspareunia. POSTOPERATIVE DIAGNOSES: 1. A 31-year-old female with chronic pelvic pain. 2. Abnormal uterine bleeding. 3. Endometriosis. 4. Dysmenorrhea. 5. Dyspareunia. PROCEDURE: Robotic-assisted total laparoscopic hysterectomy, bilateral salpingo-oophorectomy. SURGEON: Tashi Blackman DO PACKAGE LINE OPERATOR: Na Alicia DNP was necessary for manipulation and retraction throughout the procedure. ANESTHESIA: General endotracheal. ESTIMATED BLOOD LOSS: Minimal. URINE OUTPUT: 50 mL clear at the end of the procedure. FLUIDS: 1200 mL lactated Ringer's solution. FINDINGS: Grossly normal-appearing uterus, bilateral fallopian tubes and ovaries with excrescences consistent with endometriosis, history as well as some filmy bleeding of the posterior cul-de-sac. SPECIMEN SENT: Uterus, bilateral fallopian tubes and ovaries. INDICATIONS FOR PROCEDURE: This 31-year-old female was a patient who struggled with chronic pelvic pain for several years. The better portion of a decade. She underwent multiple laparoscopic surgeries in addressing endometriosis in the past; however, she has finally met her frustration threshold and she wishes to proceed with hysterectomy. She has attempted oral contraceptive pills, Depo-Provera, IUD and has considered a GnRH antagonist, all of these were offered and the patient still desires to proceed with a hysterectomy as definitive measure for this ongoing issue. We discussed the potential for [facility] hormonal therapy after 6-12 months of suppression of the endometriosis. After all of her questions were answered pertaining to this as well as long-term use of hormone replacement therapy and contraindications, she was agreeable to proceed. Consent was obtained. The patient was taken to the operating room. OPERATIVE REPORT IN DETAIL: Once in the operating room, anesthesia was administered and found to be adequate. She was placed in the dorsal lithotomy position, prepped and draped in normal sterile fashion. A timeout was performed. Hendricks catheter was placed using sterile technique. A weighted speculum inserted to the patient's vagina. Right angle retractor was used to visualize the cervix, was grasped at 12 o'clock position using a long Allis clamp. An 0 Vicryl suture was then placed to anterior lip of the cervix using my retraction point. I then gently sound the uterine cavity depth was sounded to be 8 cm. I selected an 8 cm MAHSA uterine manipulator tip and a 3.5 cm colpotomy ring. The manipulator tip was advanced into the uterus with the balloons deployed and the colpotomy ring was advanced around the vaginal fornix. I then removed all the other instruments from the patient's vagina, performed change of gloves and my attention to the abdomen where subcostally at the midclavicular line on the left side, I introduced a Veress needle through the skin until intraperitoneal placement was confirmed using a saline drop test. An opening pressure of 5 mmHg was noted. I proceeded with CO2 insufflation to max pressure of 15 mmHg, at which point I make an 8 mm infraumbilical trocar incision with a knife and direct 8 mm blunt da Ghanshyam laparoscopic trocar through the incision until intraperitoneal placement was confirmed using the da Ghanshyam laparoscope. There was no evidence of damage from entry site. A brief scan of the upper abdominal anatomy appears to be grossly normal. There is no evidence of damage upon the Veress entry site and the Veress was removed at that point. I then have the patient placed in steep Trendelenburg where I am able to visualize all my pelvic anatomy as defined in my findings above. I placed 2 lateral trocars using both 8 mm trocars were placed under direct visualization laparoscope approximately 8 cm lateral to my infraumbilical trocar. Once both of these trocars were in place, I brought the da Ghanshyam robot and docked in appropriate fashion, placing the SynchroSeal device in left hand, monopolar vane in the right hand. I then taped my place at [employer] operative console and using the robot, I performed the following dissection bilaterally starting at the IP ligament. I sealed and transected using the SynchroSeal device. I then grasped the round ligament, which I sealed and transected using [employer] device. This allows me to grasp the entire broad ligament, which I sealed and transect using the SynchroSeal device down to the level of the lower uterine segment. I identified the ureters during this entire dissection process and stay clear of them during my dissection. The anterior leaf of the broad ligament was around to the anterior vaginal fornix. The posterior leaflet was taken around the posterior vaginal fornix. This allows me to skeletonize the uterine vessels laterally, which I sealed and transected using a SynchroSeal device. I then created a colpotomy at 12 o'clock position using monopolar vane and take this circumferentially around the vaginal fornix amputating the cervix away from the vagina. The entire specimen was removed through the vagina. I then closed the vaginal cuff using 2-0 V-Loc in a running fashion, after which there was no active bleeding noted from any of my dissection planes. I then undocked da Ghanshyam robot and proceeded with remainder of the case laparoscopically. I copiously irrigated the pelvis using normal saline. Once again, there was active bleeding noted from any of my dissection planes. I placed Surgiflo hemostatic agent over all my planes of dissection. The patient was taken out of steep Trendelenburg where I removed the lateral trocars under direct visualization of laparoscope. The infraumbilical trocars left in place to release the remainder of insufflation and to introduce 10 mL of 0.25% Marcaine in the peritoneal cavity for postoperative pain management. I then removed this trocar as well. The skin was reapproximated using 4-0 Monocryl interrupted subcuticular stitches. Dermabond was applied. Incision and sterile dressing was adhesed with white tape. Hendricks catheter was left in place. The patient tolerated the procedure well and was taken to recovery in stable condition. Lap and sponge count was correct at the end of the procedure. Instrument counts correct as well. 2 grams of Ancef, 500 mg of Flagyl were given preoperatively for infection prophylaxis. Job ID: [id number] DocumentID: [id number] Dictated Date: 10/03/2022 11:30:35 Core Finisher Date: 10/03/2022 18:52:00 Dictated By: DO JAMES HINOJOSA
[2022-10-08] MEDS ORDERED: IBUPROFEN 600 MG (MOTRIN) TAB PO SCH (06:00)
== END 2022-10-03 16:55 | disposition home or self-care (01) ==
LOC: SDC 05:52 → WS 09:38 → SDC 16:55
PROVIDERS: ATTEND Obstetrics & Gynecology
DX: D25.1 Intramural leiomyoma of uterus (principal); N83.291 Other ovarian cyst, right side; N83.292 Other ovarian cyst, left side; N83.11 Corpus luteum cyst of right ovary; N93.9 Abnormal uterine and vaginal bleeding, unspecified; N94.6 Dysmenorrhea, unspecified; N83.8 Other noninflammatory disorders of ovary, fallopian tube and broad ligament; N80.30 Endometriosis of pelvic peritoneum, unspecified; N94.12 Deep dyspareunia; E66.9 Obesity, unspecified; Z68.37 Body mass index [BMI] 37.0-37.9, adult; Z78.9 Other specified health status
CPT/HCPCS: 36415; 84703; 85025; 86850; 86900; 86901; 87081; 94664